=== PATIENT | female | born 1950 | race Caucasian/White ===

== ENCOUNTER 2019-09-03 22:16 | Emergency (ER) | payer OTHER ==
[2019-09-03] MEDS ORDERED: HYDROCODONE/APAP 5/325 MG TAB ONE (22:57)
[2019-09-03] MEDS ORDERED: DIAZEPAM 2 MG TABLET ONE (22:58)
--- NOTE | 2019-09-03 23:35 | EDPHYS ---
Physician Documentation [facility] Name: Tammie Aguero Age: 69 yrs Sex: Female : 1950 Arrival Date: 09/03/2019 Time: 22:17 Bed 6 Private MD: ED Physician Raheem Rios HPI: 09/03 22:52 This 69 yrs old Female presents to ER via Ambulatory with complaints of Fall snw Injury, Shoulder Injury. 22:52 Details of fall: The patient fell from an upright position, slipped while walking and snw struck shoulder (right) against the wall, did not fall all the way to the ground. Onset: The symptoms/episode began/occurred suddenly, just prior to arrival. Associated injuries: The patient sustained anterior aspect of right shoulder, contusion, decreased range of motion, painful injury. Severity of symptoms: At their worst the symptoms were moderate. The patient has not experienced similar symptoms in the past. It is unknown whether or not the patient has recently seen a physician. 22:54 No LOC, did not hit head, fall to the ground, denies neck tenderness. snw Historical: - Allergies: 22:35 No Known Allergies; lp1 - Home Meds: 22:35 Metformin Oral [Active]; Glipizide Oral [Active]; valsartan oral oral [Active]; lp1 - PMHx: 22:35 Hypertension; Diabetes - NIDDM; lp1 - PSHx: 22:35 None; lp1 - Immunization history:: Adult Immunizations up to date. - Coronavirus screen:: The patient has NOT traveled to [place] in the past 14 days. The patient has NOT had contact with known/suspected case of Coronavirus?. - Social history:: Smoking status: Patient denies any tobacco usage or history of. - Ebola Screening: : No symptoms or risks identified at this time. ROS: 22:52 Constitutional: Negative for fever, chills, and weight loss, Eyes: Negative for injury, snw pain, redness, and discharge, ENT: Negative for injury, pain, and discharge, Neck: Negative for injury, pain, and swelling, Cardiovascular: Negative for chest pain, palpitations, and edema, Respiratory: Negative for shortness of breath, cough, wheezing, and pleuritic chest pain, Abdomen/GI: Negative for abdominal pain, nausea, vomiting, diarrhea, and constipation, Back: Negative for injury and pain, : Negative for injury, bleeding, discharge, and swelling, Skin: Negative for injury, rash, and discoloration, Neuro: Negative for headache, weakness, numbness, tingling, and seizure, Psych: Negative for depression, anxiety, suicide ideation, homicidal ideation, and hallucinations. 22:52 MS/extremity: Positive for injury or acute deformity, decreased range of motion, pain, tenderness, of the anterior aspect of right shoulder. Exam: 22:50 Constitutional: This is a well developed, well nourished patient who is awake, alert, snw and in no acute distress. Head/Face: Normocephalic, atraumatic. Eyes: Pupils equal round and reactive to light, extra-ocular motions intact. Lids and lashes normal. Conjunctiva and sclera are non-icteric and not injected. Cornea within normal limits. Periorbital areas with no swelling, redness, or edema. ENT: Nares patent. No nasal discharge, no septal abnormalities noted. Tympanic membranes are normal and external auditory canals are clear. Oropharynx with no redness, swelling, or masses, exudates, or evidence of obstruction, uvula midline. Mucous membranes moist. Neck: Trachea midline, no thyromegaly or masses palpated, and no cervical lymphadenopathy. Supple, full range of motion without nuchal rigidity, or vertebral point tenderness. No Meningismus. Chest/axilla: Normal chest wall appearance and motion. Nontender with no deformity. No lesions are appreciated. Cardiovascular: Regular rate and rhythm with a normal S1 and S2. No gallops, murmurs, or rubs. Normal PMI, no JVD. No pulse deficits. Respiratory: Lungs have equal breath sounds bilaterally, clear to auscultation and percussion. No rales, rhonchi or wheezes noted. No increased work of breathing, no retractions or nasal flaring. Abdomen/GI: Soft, non-tender, with normal bowel sounds. No distension or tympany. No guarding or rebound. No evidence of tenderness throughout. Back: No spinal tenderness. No costovertebral tenderness. Full range of motion. Skin: Warm, dry with normal turgor. Normal color with no rashes, no lesions, and no evidence of cellulitis. Psych: Awake, alert, with orientation to person, place and time. Behavior, mood, and affect are within normal limits. 22:50 Musculoskeletal/extremity: Extremities: grossly normal except: noted in the anterior right shoulder, no palpable dislocation: decreased ROM, tenderness. 22:50 Neuro: Orientation: appropriate for stated age, Mentation: is normal, Memory: is normal, seizure activity, is not displayed by the patient, Abnormal movements: fine tremor. Vital Signs: 22:33 BP 143 / 81; Pulse 84; Resp 18; Temp 97(TE); Pulse Ox 100% on R/A; Weight 71.67 kg (R); lp1 Height 5 ft. 3 in. (160.02 cm); Pain 6/10; 23:45 BP 150 / 77; Pulse 80; Resp 17; Pulse Ox 98% ; rr5 22:33 Body Mass Index 27.99 (71.67 kg, 160.02 cm) lp1 MDM: 22:55 Patient medically screened. snw 23:35 Data reviewed: vital signs, nurses notes. Data interpreted: Pulse oximetry: on room air snw is 100 %. Interpretation: normal. Counseling: I had a detailed discussion with the patient and/or guardian regarding: the historical points, exam findings, and any diagnostic results supporting the discharge/admit diagnosis, radiology results, the need for outpatient follow up, to return to the emergency department if symptoms worsen or persist or if there are any questions or concerns that arise at home. Special discussion: Based on the history and exam findings, there is no indication for further emergent testing or inpatient evaluation. I discussed with the patient/guardian the need to see the primary care provider for further evaluation of the symptoms. 09/03 22:46 Order name: Chest Single View XRAY snw 09/03 22:47 Order name: Shoulder Right (2 View) XRAY snw 09/03 23:33 Order name: Sling; Complete Time: 23:45 snw Administered Medications: 22:56 Drug: Valium 2 mg Route: PO; rr5 23:44 Follow up: Response: No adverse reaction rr5 22:57 Drug: [place] 5 mg-325 mg 1 tabs {Note: rass 0.} Route: PO; rr5 23:44 Follow up: Response: No adverse reaction; RASS: Alert and Calm (0) rr5 Disposition: 09/04 06:22 Co-signature as Attending Physician, Raheem Rios MD Did not see or evaluate patient. ps1 Signature is for administrative purposes. . Disposition: 09/03/19 23:34 Discharged to Home. Impression: Fall on same level from slipping, tripping and stumbling with subsequent striking against object, Contusion of right shoulder. - Condition is Stable. - Discharge Instructions: Cervical Radiculopathy, Fall Prevention in the Home, RICE for Routine Care of Injuries, Shoulder Pain, Shoulder Range of Motion Exercises, How to Use a Sling. - Prescriptions for orphenadrine citrate 100 mg Oral Tablet Sustained Release - take 1 tablet by ORAL route 2 times per day As needed; 20 tablet. - Medication Reconciliation Form, Thank You Letter, Antibiotic Education, Prescription Opioid Use form. - Follow up: Emergency Department; When: As needed; Reason: Worsening of condition. Follow up: Private Physician; When: 2 - 3 days; Reason: Recheck today's complaints, Continuance of care, Re-evaluation by your physician. Signatures: Dispatcher [employer] EDID Melva Lora FNP-C FIELD SALES ENGINEER-[employer] Concepcion Goldstein, RN RN lp1 Raheem Rios MD MD ps1 Andrés Wade RN RN rr5 Corrections: (The following items were deleted from the chart) 09/03 23:49 23:34 09/03/2019 23:34 Discharged to Home. Impression: Fall on same level from rr5 slipping, tripping and stumbling with subsequent striking against object; Contusion of right shoulder. Condition is Stable. Forms are Medication Reconciliation Form, Thank You Letter, Antibiotic Education, Prescription Opioid Use. Follow up: Emergency Department; When: As needed; Reason: Worsening of condition. Follow up: Private Physician; When: 2 - 3 days; Reason: Recheck today's complaints, Continuance of care, Re-evaluation by your physician. snw
--- NOTE | 2019-09-03 23:35 | ER ---
Nurse's Notes [facility] Name: Tammie Aguero Age: 69 yrs Sex: Female : 1950 Arrival Date: 09/03/2019 Time: 22:17 Bed 6 Private MD: Diagnosis: Fall on same level from slipping, tripping and stumbling with subsequent striking against object;Contusion of right shoulder Presentation: 09/03 22:30 Presenting complaint: Patient states: Slipped on wet floor while getting out of shower, lp1 hit right shoulder on wall; Denies any other injuries. Transition of care: patient was not received from another setting of care. Onset of symptoms. Risk Assessment: Do you want to hurt yourself or someone else? Patient reports no desire to harm self or others. Initial Sepsis Screen: Does the patient meet any 2 criteria? No. Patient's initial sepsis screen is negative. Does the patient have a suspected source of infection? No. Patient's initial sepsis screen is negative. Care prior to arrival: None. 22:30 Method Of Arrival: Ambulatory lp1 22:30 Acuity: CONTRERAS 4 lp1 Historical: - Allergies: 22:35 No Known Allergies; lp1 - Home Meds: 22:35 Metformin Oral [Active]; Glipizide Oral [Active]; valsartan oral oral [Active]; lp1 - PMHx: 22:35 Hypertension; Diabetes - NIDDM; lp1 - PSHx: 22:35 None; lp1 - Immunization history:: Adult Immunizations up to date. - Coronavirus screen:: The patient has NOT traveled to [place] in the past 14 days. The patient has NOT had contact with known/suspected case of Coronavirus?. - Social history:: Smoking status: Patient denies any tobacco usage or history of. - Ebola Screening: : No symptoms or risks identified at this time. Screenin:35 Abuse screen: Denies threats or abuse. Denies injuries from another. Nutritional lp1 screening: No deficits noted. Tuberculosis screening: No symptoms or risk factors identified. Fall Risk None identified. Assessment: 22:30 General: Appears in no apparent distress. uncomfortable, Behavior is calm, cooperative, rr5 appropriate for age. 22:30 Pain: Complains of pain in right arm Pain radiates to right shoulder Pain currently is rr5 6 out of 10 on a pain scale. Quality of pain is described as aching, Pain began suddenly, Is intermittent. Neuro: Level of Consciousness is awake, alert, obeys commands, Oriented to person, place, time, situation, Appropriate for age. Cardiovascular: Capillary refill < 3 seconds Patient's skin is warm and dry. Respiratory: Airway is patent Respiratory effort is even, unlabored, Respiratory pattern is regular, symmetrical. GI: No signs and/or symptoms were reported involving the gastrointestinal system. : No signs and/or symptoms were reported regarding the genitourinary system. EENT: No signs and/or symptoms were reported regarding the EENT system. Derm: Skin is intact, is healthy with good turgor, Skin temperature is warm. Musculoskeletal: Capillary refill < 3 seconds, Range of motion: limited in right shoulder and right elbow Reports pain in right arm Pain is 6 out of 10 on a pain scale. 23:43 Reassessment: Patient appears in no apparent distress at this time. Patient is alert, rr5 oriented x 3, equal unlabored respirations, skin warm/dry/pink. discharge instruction given and explained without complaints made, verbalized understanding. Vital Signs: 22:33 BP 143 / 81; Pulse 84; Resp 18; Temp 97(TE); Pulse Ox 100% on R/A; Weight 71.67 kg (R); lp1 Height 5 ft. 3 in. (160.02 cm); Pain 6/10; 23:45 BP 150 / 77; Pulse 80; Resp 17; Pulse Ox 98% ; rr5 22:33 Body Mass Index 27.99 (71.67 kg, 160.02 cm) lp1 ED Course: 22:17 Patient arrived in ED. cl3 22:33 Triage completed. lp1 22:33 Arm band placed on. lp1 22:35 Patient has correct armband on for positive identification. lp1 22:45 Melva Lora FNP-C is [facility]. snw 22:45 Raheem Rios MD is Attending Physician. snw 22:49 Andrés Wade RN is Primary Nurse. rr5 23:24 Chest Single View XRAY In Process Unspecified. EDMS 23:25 Shoulder Right (2 View) XRAY In Process Unspecified. EDMS 23:35 No provider procedures requiring assistance completed. Patient did not have IV access rr5 during this emergency room visit. Shoulder immobilizer applied on right shoulder. Administered Medications: 22:56 Drug: Valium 2 mg Route: PO; rr5 23:44 Follow up: Response: No adverse reaction rr5 22:57 Drug: [place] 5 mg-325 mg 1 tabs {Note: rass 0.} Route: PO; rr5 23:44 Follow up: Response: No adverse reaction; RASS: Alert and Calm (0) rr5 Outcome: 23:34 Discharge ordered by MD. montelongo 23:44 Discharged to home ambulatory, with family. rr5 23:44 Condition: stable 23:44 Discharge instructions given to patient, Instructed on discharge instructions, follow up and referral plans. medication usage, Demonstrated understanding of instructions, follow-up care, medications, Prescriptions given X 1. 23:49 Patient left the ED. rr5 Signatures: Dispatcher [employer] EDMS Melva Lora, FINANCIAL SALES MANAGER-C FINANCIAL SALES MANAGER-[employer] Concepcion Goldstein RN RN lp1 Andrés Wade RN RN rr5 Joe Velásquez cl3
[2019-09-04 00:20] VITALS: TEMP 97
[2019-09-04 00:21] VITALS: BP 150/77; O2SAT 98
--- NOTE | 2019-09-04 07:53 | RAD REPORT ---
EXAM DESCRIPTION: Shoulder Right 2 View - 09/03/2019 11:24 pm CLINICAL HISTORY: PAIN, fall with shoulder pain COMPARISON: No comparisons TECHNIQUE: Internal and external rotation views of the right shoulder were obtained. FINDINGS: There is no fracture or dislocation. AC joint degenerative changes are present relatively mild. Capsular hypertrophy is present superiorly. No inferiorly directed spur. Acromial humeral join t space normal range. No acute or suspicious findings. No upper chest rib abnormality identifiable. IMPRESSION: No fracture, dislocation or other acute finding.
--- NOTE | 2019-09-04 07:54 | RAD REPORT ---
EXAM DESCRIPTION: RAD - Chest Single View - 09/03/2019 11:23 pm CLINICAL HISTORY: fall, chest pain COMPARISON: Chest Pa And Lat (2 Views) dated 02/15/2016 TECHNIQUE: AP portable chest image was obtained 09/03/2019 11:23 pm . FINDINGS: Lungs are clear. Heart and vasculature are normal. No measurable pleural effusion and no p neumothorax. No acute bony abnormality seen. No acute aortic findings suspected. IMPRESSION: No acute cardiopulmonary process.
== END 2019-09-03 23:49 | disposition home or self-care (01) ==
LOC: ER 22:16
DX: S40.011A Contusion of right shoulder, initial encounter (principal); W01.198A Fall on same level from slipping, tripping and stumbling with subsequent striking against other object, initial encounter; Y93.01 Activity, walking, marching and hiking; Y92.9 Unspecified place or not applicable; I10 Essential (primary) hypertension; E11.9 Type 2 diabetes mellitus without complications
CPT/HCPCS: 71045; 99284